=== PATIENT | female | born 1975 | race Hispanic/Latino ===

== ENCOUNTER 2017-12-22 10:21 | Emergency (ER) | payer OTHER ==
[2017-12-22 11:06] LABS: Basophils # (Auto) 0.1 K/mm3 (0.0-0.1); Basophils % (Auto) 0.6 % (0.0-1.8); Eosinophils # (Auto) 0.1 K/mm3 (0.0-0.4); Eosinophils % (Auto) 1.2 % (0.0-4.3); Hematocrit 39.9 % (30.3-42.9); Hemoglobin 13.5 gm/dl (10.1-14.3); Lymphocytes # (Auto) 2.8 K/mm3 (1.2-5.4); Lymphocytes % (Auto) 29.7 % (13.4-35.0); Mean Corpuscular HGB Conc 34 % (30-34); Mean Corpuscular Hemoglobin 31 pg (28-32); Mean Corpuscular Volume 92 fl (79-97); Monocytes # (Auto) 0.7 K/mm3 (0.0-0.8); Monocytes % (Auto) 7.5 % (0.0-7.3); Platelet Count 355 K/mm3 (140-440); Red Blood Count 4.36 M/mm3 (3.65-5.03); Red Cell Distribution Width 14.9 % (13.2-15.2)
[2017-12-22 11:23] LABS: Alanine Aminotransferase 9 units/L (7-56); Albumin 4.5 g/dL (3.9-5); BUN/Creatinine Ratio 8; Blood Urea Nitrogen 5 mg/dL (7-17); Calcium 9.4 mg/dL (8.4-10.2); Hemolysis Index 3
[2017-12-22 12:10] LABS: Bilirubin,Urine NEG (Negative); Blood,Urine NEG (Negative); Color,Urine Yellow (Yellow); Mucus,Urine FEW /HPF; Protein,Urine <15 mg/dL mg/dL (Negative); Urobilinogen,Urine < 2.0 mg/dL (<2.0)
[2017-12-22] MEDS ORDERED: TORADOL IV ONE (12:30)
[2017-12-22] MEDS ORDERED: NACL 0.9% 1000 ML 1,000 ML IV ONE (12:30)
--- NOTE | 2017-12-22 13:31 | Emergency Department Report ---
ED Abdominal Pain HPI - General Chief Complaint: Abdominal Pain Stated Complaint: ABD PAIN/BACK PAIN Time Seen by Provider: 12/22/17 12:06 Source: patient Mode of arrival: Ambulatory Limitations: No Limitations - History of Present Illness Initial Comments: 42-year-old female past medical history kidney stones, anxiety, mitral valve prolapse presents with complaint of 2-3 days of persistent right sided abdominal pain radiating to the back. Slight associated nausea. Denies any increased urinary frequency dysuria or hematuria. Patient is awake alert and oriented 3. States pain is intermittently sharp. Denies any associated nausea or vomiting. Patient states she has not had a menstrual period in several years. She had a uterine ablation. Denies any abdominal trauma. MD Complaint: abdominal pain, flank pain -: This morning - Related Data Previous Rx's Medication Instructions Recorded Last Taken Type EPINEPHrine (NF) [Epipen] 0.3 mg IM ONCE #1 syringekit 03/28/13 Unknown Rx predniSONE [Deltasone] 40 mg PO QDAY #5 tablet 03/28/13 Unknown Rx ALPRAZolam [Xanax] 0.25 mg PO TID PRN #14 tab 04/17/14 Unknown Rx Naproxen Sodium [Aleve] 220 mg PO Q8H PRN #50 tablet 04/17/14 Unknown Rx Sertraline [Zoloft] 100 mg PO QDAY #30 tablet 04/17/14 Unknown Rx Sulfamethoxazole/Trimethoprim 1 each PO BID #20 tablet 07/06/14 Unknown Rx [Bactrim Ds] Acetaminophen/Codeine [Tylenol #3] 1 tab PO Q6H PRN #10 tab 09/09/14 Unknown Rx Promethazine [Phenergan] 25 mg PO HS #4 tab 09/09/14 Unknown Rx Albuterol Sulfate [Proventil HFA] 1 - 2 puff IH Q4H PRN #1 hfa.aer.ad 11/25/14 Unknown Rx Doxycycline [Vibramycin CAP] 100 mg PO BID #20 capsule 11/25/14 Unknown Rx Prednisone [Prednisone 5 mg (6-Day 5 mg PO .TAPER #1 tab.ds.pk 11/25/14 Unknown Rx Pack, 21 Tabs)] Ibuprofen [Motrin 600 MG tab] 600 mg PO Q8H PRN #30 tablet 12/24/14 Unknown Rx Nystatin [Nystatin Oral Susp] 500,000 unit PO QID 10 Days ml 12/24/14 Unknown Rx Acetaminophen/Codeine [Tylenol 1 tab PO Q6H PRN #12 tab 12/22/17 Unknown Rx /Codeine # 3 tab] Ibuprofen [Motrin] 800 mg PO Q8HR PRN #25 tablet 12/22/17 Unknown Rx Ondansetron [Zofran Odt] 4 mg PO Q8H PRN #10 tab.rapdis 12/22/17 Unknown Rx Allergies Allergy/AdvReac Type Severity Reaction Status Date / Time sertraline [From Zoloft] Allergy Headache Verified 12/22/17 10:26 ED Review of Systems ROS: Stated complaint: ABD PAIN/BACK PAIN Other details as noted in HPI Constitutional: denies: chills, fever Eyes: denies: eye pain, eye discharge, vision change ENT: denies: ear pain, throat pain Respiratory: denies: cough, shortness of breath, wheezing Cardiovascular: denies: chest pain, palpitations Endocrine: no symptoms reported Gastrointestinal: denies: abdominal pain, nausea, diarrhea Genitourinary: denies: urgency, dysuria, discharge Musculoskeletal: denies: back pain, joint swelling, arthralgia Skin: denies: rash, lesions Neurological: denies: headache, weakness, paresthesias Psychiatric: denies: anxiety, depression Hematological/Lymphatic: denies: easy bleeding, easy bruising ED Past Medical Hx - Past Medical History Hx Psychiatric Treatment: Yes (Anxiety, Panic Attacks) Additional medical history: MVP - Surgical History Additional Surgical History: ablasion and d&c - Social History Smoking Status: Current Every Day Smoker Substance Use Type: Alcohol - Medications Home Medications: Home Medications Medication Instructions Recorded Confirmed Last Taken Type EPINEPHrine (NF) [Epipen] 0.3 mg IM ONCE #1 syringekit 03/28/13 Unknown Rx predniSONE [Deltasone] 40 mg PO QDAY #5 tablet 03/28/13 Unknown Rx ALPRAZolam [Xanax] 0.25 mg PO TID PRN #14 tab 04/17/14 Unknown Rx Naproxen Sodium [Aleve] 220 mg PO Q8H PRN #50 tablet 04/17/14 Unknown Rx Sertraline [Zoloft] 100 mg PO QDAY #30 tablet 04/17/14 Unknown Rx Sulfamethoxazole/Trimethoprim 1 each PO BID #20 tablet 07/06/14 Unknown Rx [Bactrim Ds] Acetaminophen/Codeine [Tylenol #3] 1 tab PO Q6H PRN #10 tab 09/09/14 Unknown Rx Promethazine [Phenergan] 25 mg PO HS #4 tab 09/09/14 Unknown Rx Albuterol Sulfate [Proventil HFA] 1 - 2 puff IH Q4H PRN #1 hfa.aer.ad 11/25/14 Unknown Rx Doxycycline [Vibramycin CAP] 100 mg PO BID #20 capsule 11/25/14 Unknown Rx Prednisone [Prednisone 5 mg (6-Day 5 mg PO .TAPER #1 tab.ds.pk 11/25/14 Unknown Rx Pack, 21 Tabs)] Ibuprofen [Motrin 600 MG tab] 600 mg PO Q8H PRN #30 tablet 12/24/14 Unknown Rx Nystatin [Nystatin Oral Susp] 500,000 unit PO QID 10 Days ml 12/24/14 Unknown Rx Acetaminophen/Codeine [Tylenol 1 tab PO Q6H PRN #12 tab 12/22/17 Unknown Rx /Codeine # 3 tab] Ibuprofen [Motrin] 800 mg PO Q8HR PRN #25 tablet 12/22/17 Unknown Rx Ondansetron [Zofran Odt] 4 mg PO Q8H PRN #10 tab.rapdis 12/22/17 Unknown Rx ED Physical Exam - General Limitations: No Limitations General appearance: alert, in no apparent distress - Head Head exam: Present: atraumatic, normocephalic - Eye Eye exam: Present: normal appearance, PERRL, EOMI - ENT ENT exam: Present: mucous membranes moist - Neck Neck exam: Present: normal inspection - Respiratory Respiratory exam: Present: normal lung sounds bilaterally. Absent: respiratory distress - Cardiovascular Cardiovascular Exam: Present: regular rate, normal rhythm. Absent: systolic murmur, diastolic murmur, rubs, gallop - GI/Abdominal GI/Abdominal exam: Present: tenderness (mild right upper quadrant tenderness on palpation, positive Noe sign no tenderness at McBurney's point), normal bowel sounds - Extremities Exam Extremities exam: Present: normal inspection - Back Exam Back exam: Present: normal inspection - Neurological Exam Neurological exam: Present: alert, oriented X3 - Psychiatric Psychiatric exam: Present: normal affect, normal mood - Skin Skin exam: Present: warm, dry, intact, normal color. Absent: rash ED Course Vital Signs 12/22/17 12/22/17 12/22/17 10:26 12:45 16:06 Temperature 98.1 F 98.3 F Pulse Rate 116 H 76 Respiratory 20 18 18 Rate Blood Pressure 142/90 Blood Pressure 116/78 [Left] O2 Sat by Pulse 98 99 Oximetry ED Medical Decision Making - Lab Data Result diagrams: 12/22/17 10:45 12/22/17 10:45 - Medical Decision Making A/P: Biliary colic 1-CT scan and ultrasound shows small nonobstructing gallstone between 5-8 mm. Patient also has 2 bilateral small ovarian cysts. Patient's pain is in right upper quadrant therefore these are unlikely to be an etiology of patient's acute pain and patient denies any vaginal bleeding or vaginal discharge. 2-labs are unremarkable 3-short course analgesics and follow-up with outpatient general surgery 4-patient tolerating by mouth without difficulty Critical care attestation.: If time is entered above; I have spent that time in minutes in the direct care of this critically ill patient, excluding procedure time. ED Disposition Clinical Impression: Biliary colic Disposition: - TO HOME OR SELFCARE Is pt being admited?: No Does the pt Need Aspirin: No Condition: Stable Instructions: Biliary Colic (ED), Abdominal Pain (ED) Prescriptions: Acetaminophen/Codeine [Tylenol /Codeine # 3 tab] 1 tab PO Q6H PRN #12 tab PRN Reason: Pain , Severe (7-10) Ibuprofen [Motrin] 800 mg PO Q8HR PRN #25 tablet PRN Reason: Pain , Severe (7-10) Ondansetron [Zofran Odt] 4 mg PO Q8H PRN #10 tab.rapdis PRN Reason: Nausea Referrals: MORRIS LE MD [Staff Physician] - 3-5 Days LEONOR RODRIGUEZ DO [Staff Physician] - 3-5 Days [facility] [Provider Group] - 3-5 Days Forms: Accompanied Note, Work/School Release Form(ED) Time of Disposition: 15:57
--- NOTE | 2017-12-22 14:09 | Ultrasound Report ---
ULTRASOUND ABDOMEN LIMITED: TECHNIQUE: Transabdominal ultrasound with color Doppler interrogation. HISTORY: right upper quadrant abdominal pain. COMPARISON: none. FINDINGS: LIVER: Normal. BILIARY SYSTEM: An 8 mm gallstone is identified within the fundus of the gallbladder. No evidence for biliary dilatation, wall thickening or surrounding fluid. The CBD measures 5 mm. PANCREAS: Normal. RIGHT KIDNEY: Normal. PROXIMAL AORTA: Normal. ASCITES: None. IMPRESSION: Gallstone. No evidence for acute cholecystitis.
--- NOTE | 2017-12-22 15:18 | Cat Scan Report ---
CT ABDOMEN PELVIS WITH CONTRAST: HISTORY: Right sided abdominal pain. COMPARISON: none. TECHNIQUE: Helical CT in 1.25mm intervals following IV contrast. Sagittal and coronal reconstructions. FINDINGS: Lung bases: Normal. Liver: At least one tiny gallstone is identified measuring less than 5 mm. No biliary dilatation is identified. Biliary system: Normal. Pancreas: Normal. Spleen: Normal. Kidneys/ureters/bladder: Normal. Adrenal glands: Normal. Aorta: Normal. Intestines: Normal. Appendix: Normal. Pelvic viscera: A 2.8 left ovarian cyst is identified. A 1.4 cm right ovarian cyst is identified. The uterus is unremarkable. Ascites: None. Adenopathy: None. Musculoskeletal: Normal. IMPRESSION: Tiny gallstone. No evidence for acute cholecystitis. Bilateral ovarian cysts as described.
[2017-12-22 16:07] VITALS: BP 116/78
== END 2017-12-22 16:13 | disposition home or self-care (01) ==
LOC: ED 10:21
DX: K80.50 Calculus of bile duct without cholangitis or cholecystitis without obstruction (principal); F41.9 Anxiety disorder, unspecified; F41.0 Panic disorder [episodic paroxysmal anxiety]; F17.200 Nicotine dependence, unspecified, uncomplicated; Z88.8 Allergy status to other drugs, medicaments and biological substances
CPT/HCPCS: 36415; 74177; 76705; 80053; 81001; 83690; 84703; 85025; 96374; 99284; J1885; J7030; Q9967

== ENCOUNTER 2018-02-02 18:43 | Emergency (ER) | payer SELFPAY ==
[2018-02-02 19:53] VITALS: BP 146/94
--- NOTE | 2018-02-02 21:21 | XRay Report ---
FINAL REPORT EXAM: XR KNEE 1-2V RT HISTORY: pain and swelling r/t injury TECHNIQUE: Frontal and lateral views right knee Comparison: None FINDINGS: There is no evidence of fracture or subluxation. The joint spaces appear to be maintained. There is the appearance of an effusion in the suprapatellar pouch. IMPRESSION: 1. Appearance of an effusion in the suprapatellar pouch without definite plain film evidence of bony abnormality. If further imaging is required, MRI may be helpful.
[2018-02-02] MEDS ORDERED: ULTRAM PO ONE (21:32)
--- NOTE | 2018-02-02 21:38 | Emergency Department Report ---
ED Lower Extremity HPI - General Chief Complaint: Extremity Injury, Lower Stated Complaint: RT KNEE PAIN Time Seen by Provider: 02/02/18 21:29 Source: patient Mode of arrival: Wheelchair Limitations: No Limitations - History of Present Illness Initial Comments: Patient's a 42-year-old white female who presents for right knee pain and swelling 3 days states she stood up from the toilet and felt a pop and was suddenly unable to bear weight was immediate swelling and erythema swelling improved with icing and cryotherapy patient still unable to bear weight pain is 8/10 aching throbbing tingling MD Complaint: knee injury Onset/Timin -: days(s) Injury: Knee: Right Type of Injury: hyperextension Place: street/outdoors Severity: moderate Severity scale (0 -10): 8 Improves With: nothing Worsens With: weight bearing, movement, palpation Context: other (stood up and twisted ) Associated Symptoms: snap/pop sensation, swelling, numbness, tingling, unable to bear weight - Related Data Previous Rx's Medication Instructions Recorded Last Taken Type EPINEPHrine (NF) [Epipen] 0.3 mg IM ONCE #1 syringekit 03/28/13 Unknown Rx predniSONE [Deltasone] 40 mg PO QDAY #5 tablet 03/28/13 Unknown Rx ALPRAZolam [Xanax] 0.25 mg PO TID PRN #14 tab 04/17/14 Unknown Rx Naproxen Sodium [Aleve] 220 mg PO Q8H PRN #50 tablet 04/17/14 Unknown Rx Sertraline [Zoloft] 100 mg PO QDAY #30 tablet 04/17/14 Unknown Rx Sulfamethoxazole/Trimethoprim 1 each PO BID #20 tablet 07/06/14 Unknown Rx [Bactrim Ds] Acetaminophen/Codeine [Tylenol #3] 1 tab PO Q6H PRN #10 tab 09/09/14 Unknown Rx Promethazine [Phenergan] 25 mg PO HS #4 tab 09/09/14 Unknown Rx Albuterol Sulfate [Proventil HFA] 1 - 2 puff IH Q4H PRN #1 hfa.aer.ad 11/25/14 Unknown Rx Doxycycline [Vibramycin CAP] 100 mg PO BID #20 capsule 11/25/14 Unknown Rx Prednisone [Prednisone 5 mg (6-Day 5 mg PO .TAPER #1 tab.ds.pk 11/25/14 Unknown Rx Pack, 21 Tabs)] Ibuprofen [Motrin 600 MG tab] 600 mg PO Q8H PRN #30 tablet 12/24/14 Unknown Rx Nystatin [Nystatin Oral Susp] 500,000 unit PO QID 10 Days ml 12/24/14 Unknown Rx Acetaminophen/Codeine [Tylenol 1 tab PO Q6H PRN #12 tab 12/22/17 Unknown Rx /Codeine # 3 tab] Ibuprofen [Motrin] 800 mg PO Q8HR PRN #25 tablet 12/22/17 Unknown Rx Ondansetron [Zofran Odt] 4 mg PO Q8H PRN #10 tab.rapdis 12/22/17 Unknown Rx Acetaminophen/Codeine [Tylenol 1 tab PO Q6H PRN #12 tab 02/02/18 Unknown Rx /Codeine # 3 tab] Cyclobenzaprine [Flexeril] 10 mg PO TID PRN #30 tablet 02/02/18 Unknown Rx Naproxen [Naprosyn TAB] 500 mg PO BID PRN #30 tablet 02/02/18 Unknown Rx Allergies Allergy/AdvReac Type Severity Reaction Status Date / Time sertraline [From Zoloft] Allergy Headache Verified 12/22/17 10:26 ED Review of Systems ROS: Stated complaint: RT KNEE PAIN Other details as noted in HPI Constitutional: denies: chills, fever Eyes: denies: eye pain, eye discharge, vision change ENT: denies: ear pain, throat pain Respiratory: denies: cough, shortness of breath, wheezing Cardiovascular: denies: chest pain, palpitations Endocrine: no symptoms reported Gastrointestinal: denies: abdominal pain, nausea, diarrhea Genitourinary: denies: urgency, dysuria, discharge Musculoskeletal: joint swelling, myalgia Skin: denies: rash, lesions Neurological: denies: headache, weakness, paresthesias Psychiatric: denies: anxiety, depression Hematological/Lymphatic: denies: easy bleeding, easy bruising ED Past Medical Hx - Past Medical History Hx Psychiatric Treatment: Yes (Anxiety, Panic Attacks) Additional medical history: MVP - Surgical History Additional Surgical History: ablasion and d&c - Social History Smoking Status: Current Every Day Smoker Substance Use Type: Alcohol - Medications Home Medications: Home Medications Medication Instructions Recorded Confirmed Last Taken Type EPINEPHrine (NF) [Epipen] 0.3 mg IM ONCE #1 syringekit 03/28/13 Unknown Rx predniSONE [Deltasone] 40 mg PO QDAY #5 tablet 03/28/13 Unknown Rx ALPRAZolam [Xanax] 0.25 mg PO TID PRN #14 tab 04/17/14 Unknown Rx Naproxen Sodium [Aleve] 220 mg PO Q8H PRN #50 tablet 04/17/14 Unknown Rx Sertraline [Zoloft] 100 mg PO QDAY #30 tablet 04/17/14 Unknown Rx Sulfamethoxazole/Trimethoprim 1 each PO BID #20 tablet 07/06/14 Unknown Rx [Bactrim Ds] Acetaminophen/Codeine [Tylenol #3] 1 tab PO Q6H PRN #10 tab 09/09/14 Unknown Rx Promethazine [Phenergan] 25 mg PO HS #4 tab 09/09/14 Unknown Rx Albuterol Sulfate [Proventil HFA] 1 - 2 puff IH Q4H PRN #1 hfa.aer.ad 11/25/14 Unknown Rx Doxycycline [Vibramycin CAP] 100 mg PO BID #20 capsule 11/25/14 Unknown Rx Prednisone [Prednisone 5 mg (6-Day 5 mg PO .TAPER #1 tab.ds.pk 11/25/14 Unknown Rx Pack, 21 Tabs)] Ibuprofen [Motrin 600 MG tab] 600 mg PO Q8H PRN #30 tablet 12/24/14 Unknown Rx Nystatin [Nystatin Oral Susp] 500,000 unit PO QID 10 Days ml 12/24/14 Unknown Rx Acetaminophen/Codeine [Tylenol 1 tab PO Q6H PRN #12 tab 12/22/17 Unknown Rx /Codeine # 3 tab] Ibuprofen [Motrin] 800 mg PO Q8HR PRN #25 tablet 12/22/17 Unknown Rx Ondansetron [Zofran Odt] 4 mg PO Q8H PRN #10 tab.rapdis 12/22/17 Unknown Rx Acetaminophen/Codeine [Tylenol 1 tab PO Q6H PRN #12 tab 02/02/18 Unknown Rx /Codeine # 3 tab] Cyclobenzaprine [Flexeril] 10 mg PO TID PRN #30 tablet 02/02/18 Unknown Rx Naproxen [Naprosyn TAB] 500 mg PO BID PRN #30 tablet 02/02/18 Unknown Rx ED Physical Exam - General Limitations: No Limitations General appearance: alert, in no apparent distress - Head Head exam: Present: atraumatic, normocephalic - Eye Eye exam: Present: normal appearance - ENT ENT exam: Present: mucous membranes moist - Neck Neck exam: Present: normal inspection - Respiratory Respiratory exam: Present: normal lung sounds bilaterally. Absent: respiratory distress - Cardiovascular Cardiovascular Exam: Present: regular rate, normal rhythm. Absent: systolic murmur, diastolic murmur, rubs, gallop - GI/Abdominal GI/Abdominal exam: Present: soft, normal bowel sounds - Rectal Rectal exam: Present: deferred - Extremities Exam Extremities exam: Present: tenderness, normal capillary refill, joint swelling. Absent: calf tenderness - Expanded Lower Extremity Exam Right Knee exam: Present: tenderness, swelling, ecchymosis, effusion, pain w/ pronation/supination, pain/laxity with valgus, pain/laxity with varus. Absent: abrasion, laceration, deformity, crepidus, dislocation, erythema, posterior draw sign, full knee extension Lower Leg exam: Present: normal inspection, full ROM Ankle exam: Present: normal inspection, full ROM Foot/Toe exam: Present: normal inspection, full ROM Neuro vascular tendon exam: Present: no vascular compromise, significant pain with passive ROM of distal joint. Absent: pulse deficit, abnormal cap refill, motor deficit, sensory deficit, tendon deficit, extremity cold to touch, pallor , abnormal 2-point discrimination, decreased fine/light touch, foot drop, peroneal nerve deficit Gait: Positive: unable to bear weight - Back Exam Back exam: Present: normal inspection - Neurological Exam Neurological exam: Present: alert, oriented X3 - Psychiatric Psychiatric exam: Present: normal affect, normal mood - Skin Skin exam: Present: warm, dry, intact, normal color. Absent: rash ED Course Vital Signs 02/02/18 19:48 Temperature 97.8 F Pulse Rate 105 H Respiratory 16 Rate Blood Pressure 146/94 O2 Sat by Pulse 99 Oximetry ED Lower Extremity MDM - Radiology Data Radiology results: report reviewed, image reviewed Appearance of an effusion in the suprapatellar pouch without definite plain film of abnormality - Medical Decision Making Is a suprapatellar effusion versus knee sprain distal pulses intact no calf tenderness negative Homans sign no jaw pain with rotation patient unable to bear weight on same plan the immobilizer crutches When Necessary Pain follow-up with orthopedic surgery in 2-3 days patient verbalizes agreement and understanding of treatment plan will be DC'd home in stable condition at this time Critical care attestation.: If time is entered above; I have spent that time in minutes in the direct care of this critically ill patient, excluding procedure time. ED Disposition Clinical Impression: Knee effusion, right Knee sprain Qualifiers: Encounter type: initial encounter Involved ligament of knee: lateral collateral ligament Laterality: right Qualified Code(s): S83.421A - Sprain of lateral collateral ligament of right knee, initial encounter Disposition: DC-01 TO HOME OR SELFCARE Is pt being admited?: No Does the pt Need Aspirin: No Condition: Good Instructions: Knee Effusion (ED) Prescriptions: Acetaminophen/Codeine [Tylenol /Codeine # 3 tab] 1 tab PO Q6H PRN #12 tab PRN Reason: severe pain Cyclobenzaprine [Flexeril] 10 mg PO TID PRN #30 tablet PRN Reason: Muscle Spasm Naproxen [Naprosyn TAB] 500 mg PO BID PRN #30 tablet PRN Reason: pain Referrals: RADHA JENKINS MD [Staff Physician] - 3-5 Days Forms: Work/School Release Form(ED) Time of Disposition: 21:42
== END 2018-02-02 21:50 | disposition home or self-care (01) ==
LOC: ED 18:43
DX: S83.412A Sprain of medial collateral ligament of left knee, initial encounter (principal); M25.461 Effusion, right knee; F41.9 Anxiety disorder, unspecified; F17.200 Nicotine dependence, unspecified, uncomplicated; F41.0 Panic disorder [episodic paroxysmal anxiety]; Z88.8 Allergy status to other drugs, medicaments and biological substances; X50.0XXA Overexertion from strenuous movement or load, initial encounter; Y93.89 Activity, other specified; Y92.410 Unspecified street and highway as the place of occurrence of the external cause; Y99.8 Other external cause status
CPT/HCPCS: 99283